=== PATIENT | male | born 1975 | race Caucasian/White ===

== ENCOUNTER → 2024-12-28 07:49 | Outpatient (REF) | payer BC, SELFPAY | LOC: EMG 07:49 | PROVIDERS: ATTENDING PHYSICIAN Orthopaedic Surgery Hand Surgery | DX: G56.01 Carpal tunnel syndrome, right upper limb (principal); G56.02 Carpal tunnel syndrome, left upper limb | CPT/HCPCS: 95886; 95911 ==